=== PATIENT | female | born 1970 | race Caucasian/White ===

== ENCOUNTER 2017-02-09 13:42 | Emergency (ER) | payer OTHER | END 2017-02-09 13:58 | disposition home or self-care (01) | LOC: ER 13:42 | DX: J06.9 Acute upper respiratory infection, unspecified (principal); F32.9 Major depressive disorder, single episode, unspecified; F41.9 Anxiety disorder, unspecified; I10 Essential (primary) hypertension; J44.9 Chronic obstructive pulmonary disease, unspecified; J45.909 Unspecified asthma, uncomplicated; F17.210 Nicotine dependence, cigarettes, uncomplicated; Z90.711 Acquired absence of uterus with remaining cervical stump; Z79.899 Other long term (current) drug therapy; Z88.2 Allergy status to sulfonamides ==

== ENCOUNTER 2017-03-25 15:27 | Emergency (ER) | payer OTHER | END 2017-03-25 19:02 | disposition home or self-care (01) | LOC: ER 15:27 | DX: R07.89 Other chest pain (principal); R06.02 Shortness of breath; R11.0 Nausea; R05 Cough; J45.909 Unspecified asthma, uncomplicated; I10 Essential (primary) hypertension; F32.9 Major depressive disorder, single episode, unspecified; F41.9 Anxiety disorder, unspecified; F17.210 Nicotine dependence, cigarettes, uncomplicated; Z90.711 Acquired absence of uterus with remaining cervical stump; Z88.2 Allergy status to sulfonamides | CPT/HCPCS: 36415; 96374; J1885; Q9967 ==